=== PATIENT | male | born 1980 | race Caucasian/White ===

== ENCOUNTER 2024-06-13 21:51 | Emergency (ER) | payer MEDICAID, SELFPAY ==
[2024-06-13 21:52] VITALS: BP 146/96; PULSE 104; RESP 18; TEMP 36.9; O2SAT 99; BMI 29.0
--- NOTE | 2024-06-13 22:42 | EKG12_ITS ---
Test Reason : [facility] [place] Blood Pressure : / mmHG Vent. Rate : 097 BPM Atrial Rate : 097 BPM P-R Int : 148 ms QRS Dur : 096 ms QT Int : 354 ms P-R-T Axes : 068 009 057 degrees QTc Int : 449 ms Normal sinus rhythm Normal ECG Confirmed by CARSON NOE, LILLI ([id number]), school photograph editor VIN KAMARA ([id number]) on 06/16/2024 6:29:18 AM Referred By: Confirmed By:LILLI BYRD MD
[2024-06-13 22:52] VITALS: PULSE 82; RESP 16; O2SAT 100
[2024-06-13 23:06] LABS: Absolute Lymphocyte Count 1.76 X10^3/uL (0.83-4.51); Absolute Neutrophil Count 8.3 X10^3/uL (2.0-7.7); Basophil# 0.03 X10^3/uL; Basophil% 0.3 % (0-1); Hemoglobin 14.7 g/dL (13.0-16.5); Lymphocyte # 1.76 X10^3/ul (0.83-4.51); Lymphocyte % 16.7 % (19-41); Mean Corp Hgb Conc 33.4 g/dL (32-36); Mean Corpuscular Hgb 27.4 pg (27.0-32.0); Mean Corpuscular Volume 82.1 fL (80-94); Mean Platelet Vol. 10.6 fl (6.2-12.0); Monocyte# 0.37 X10^3/uL; Monocyte% 3.5 % (0-10); NRBC Flagged by Analyzer 0 % (0-5); Neutrophil # 8.32 X10^3/uL (2.7-7.7); Neutrophil % 79.1 % (47-70); Platelet Count 286 K/mm3 (150-450); RBC Distribution Width CV 13.3 % (11.6-14.6); RBC Distribution Width SD 39.8 fl (35.1-43.9); Red Blood Count 5.36 M/mm3 (4.6-6.2); White Blood Count 10.5 K/mm3 (4.4-11.0)
[2024-06-13 23:23] LABS: Anion Gap 8 (5-15); BUN 13 mg/dL (7-18); BUN/Creat Ratio 13.6 RATIO (10-20); Calcium,Total 9.8 mg/dL (8.5-10.1); Chloride 103 mmol/L (98-107); Creatinine, Serum 0.96 mg/dL (0.70-1.30); EST Glomerular Filtration Rate 90 mL/min (>60); Est Glom Filt Rate - Afr Amer 109 mL/min (>60); Estimated Creatinine Clearance 112.82 ml/min; Glucose 138 mg/dL (74-106); Potassium 3.9 mmol/L (3.5-5.1); Sodium Level 135 mmol/L (136-145)
[2024-06-13 23:24] LABS: Amphetamine Urine VISTA NEGATIVE (<1000 ng/mL); Barbiturate Urine VISTA NEGATIVE (< 200 ng/mL); Benzodiazepine Urine VISTA NEGATIVE (< 200 ng/mL); Cocaine Urine VISTA NEGATIVE (< 300 ng/mL); Ecstacy Urine VISTA NEGATIVE (< 500 ng/mL); Methadone Urine VISTA NEGATIVE (< 300 ng/mL); PCP Urine VISTA NEGATIVE (< 25 ng/mL); THC Urine VISTA NEGATIVE (< 50 ng/mL); Vista UDS pH Range 5
[2024-06-13 23:52] VITALS: BP 142/79; PULSE 86; RESP 18; O2SAT 96
[2024-06-14] VITALS: PULSE 80; RESP 14; O2SAT 97
[2024-06-14 00:01] LABS: Acetaminophen (Tylenol) Level < 2.0 ug/mL (10.0-30.0); Alcohol, Blood (Medical)-Serum < 3.0 mg/dL; Salicylate 3.1 mg/dL (2.8-20.0)
[2024-06-14] MEDS: LORazepam 1 MG Tablet PO (00:47)
--- NOTE | 2024-06-14 02:51 | EX.ED.DYSGE1 ---
HPI History of Present Illness Chief Complaint: Suicidal Informant: patient and friend Narrative Narrative: Patient is a 44-year-old male who reports a past medical history of depression and paranoia. He states he feels like people are just out to get him. He also states that he always hears voices. He denies any visual hallucinations. He states that he also has a history of injecting heroin and methamphetamine. He reports that his paranoia is leading to thoughts of suicide and he is afraid that if he is discharged that he would attempt to hurt himself. He states his plan is to overdose. He does admit to a previous attempt years ago. He states that he also drank multiple years ago but denies any recent alcohol use and also reports there is been no illicit drug use. He reportedly has been at a sober living house and has been acting abnormally because of his paranoia and today voiced his concerns that he would harm himself to a staff member and because of this was brought in for evaluation [facility] Medical History Paranoia Anxiety Depression Home Medications ?Medication ?Instructions ?Recorded ?Last Taken ?Type NK 06/13/24 Unknown History Allergy/AdvReac Type Severity Reaction Status Date / Time Penicillins (PCN) Allergy Severe Hives Verified 06/13/24 21:58 Social History Smoking Status: Current every day smoker tobacco type: smokeless tobacco ROS ROS ED Constitutional Constitutional ED: Denies chills or fever(s) Eyes Eyes: Denies blurry vision or change in vision ENT ENT ED: Denies sore throat Cardiovascular Cardiovascular: Denies chest pain Respiratory/Chest Respiratory/Chest: Denies cough or dyspnea Gastrointestinal Gastrointestinal: Denies abdominal pain, diarrhea, nausea or vomiting Genitourinary Genitourinary ED: Denies dysuria Musculoskeletal Musculoskeletal: Denies myalgias Integumentary Denies rash Neurologic Neurologic: Denies headache(s) Psychiatric Psychiatric: Reports depression, suicidal ideation, suicidal thoughts and other Details: Positive auditory hallucinations Hematologic/Lymphatic Hematologic/Lymphatic: Denies easy bleeding or easy bruising EXAM Physical Exam Const Vital Signs: 06/13/24 21:52 06/13/24 22:52 06/13/24 23:52 Temperature 98.4 F Temperature Source Oral Pulse Rate 104 H 82 86 Respiratory Rate 18 16 18 Blood Pressure 146/96 H 142/79 H Blood Pressure Mean 112 100 Pulse Ox 99 100 96 Oxygen Delivery Method Room Air Room Air Room Air 06/14/24 00:00 Temperature Temperature Source Pulse Rate 80 Respiratory Rate 14 Blood Pressure Blood Pressure Mean Pulse Ox 97 Oxygen Delivery Method Room Air Positive well nourished and well developed General Appearance ED: well developed HEENT HEENT Narrative: No tongue or lip swelling no oral lesions no airway edema or compromise No signs of infection noted in the posterior pharynx Eyes PERRL and EOMs intact bilaterally General Eye ED: Negative for scleral icterus Neck supple Neck Narrative: No nuchal rigidity or meningeal signs Chest Wall palpation of chest normal Resp normal respiratory effort and clear to auscultation bilaterally Resp Narrative: No nasal flaring retractions tachypnea or accessory muscle use Cardio regular rate and regular rhythm Rate: other Other Details: Radial and carotid pulses are equal and symmetric No murmurs rubs or gallops noted GI normal to inspection, nondistended, normoactive bowel sounds, non-tender, non-distended and no masses GI Narrative: No voluntary guarding or rigidity or pulsatile mass Auscultation: normoactive bowel sounds Palpation: soft Extremity Extremity Narrative: Patient has scarring to bilateral arms consistent with history of IV drug abuse but no secondary changes to suggest acute infection such as cellulitis or abscess No splinter hemorrhages noted Neuro oriented x3, CN's II-XII intact bilaterally and no sensory deficits noted Sensorium / Orientation: alert Motor Exam: strength 5/5 throughout Psych Psych Narrative: Patient has a flat affect. He admits to auditory hallucinations and reports suicidal ideation with plan to overdose. Skin Skin Narrative: Scarring to the bilateral upper extremities consistent with IV drug use as documented above but no secondary findings to suggest infection MDM MDM MDM Narrative Medical decision making narrative: Patient arrived to the ER hypertensive but otherwise with stable vitals. He reported longstanding paranoia which is most likely been exacerbated by his years of drug abuse. At this time he admits he is afraid he will harm himself if discharged and he has a plan to overdose. He does have a history of IV drug use and access to obtaining illicit drugs and therefore this is a very real possibility that he could perform this type of action. Secondary to this a medical screening exam will be performed and he will be evaluated by crisis center. He does not have any murmurs on exam and there are no splinter hemorrhages present going against any possibility of myocarditis from his history of IV drug use. Also, he does not have signs of secondary infection from the of his skin/soft tissue from IV drug use and therefore there is no need for antibiotic. Medical workup reveals no clinically significant findings and patient's talk screen and alcohol value are negative correlating his response of he has not done alcohol or drugs recently. The patient was evaluated by crisis center and they agree that with his medical history and report of suicidal ideation with plan that he would best be served with inpatient therapy versus outpatient. Secondary to this they attempted placement at [facility] and he was accepted to their facility. The patient has remained calm and cooperative for his ER stay and he is medically cleared from an emergency room standpoint for transfer/placement in psychiatric hospital History & Record Review Discussion w/independent historian: Patient and Friend Lab Data Attestation: I reviewed the patient's lab results. Labs: Laboratory Results - last 24 hr 06/13/24 22:57 WBC 10.5 RBC 5.36 Hgb 14.7 Hct 44.0 MCV 82.1 MCH 27.4 MCHC 33.4 RDW Std Deviation 39.8 RDW Coeff of Lanre 13.3 Plt Count 286 MPV 10.6 Immature Gran % (Auto) 0.400 Neut % (Auto) 79.1 H Lymph % (Auto) 16.7 L [place] % (Auto) 3.5 Eos % (Auto) 0.0 Baso % (Auto) 0.3 Absolute Neuts (auto) 8.3 H Absolute Lymphs (auto) 1.76 Nucleated RBC % 0 Sodium 135 L Potassium 3.9 Chloride 103 Carbon Dioxide 23.0 Anion Gap 8 BUN 13 Creatinine 0.96 Estim Creat Clear Calc 112.82 Est GFR (MDRD) Af Amer 109 Est GFR (MDRD) Non-Af 90 BUN/Creatinine Ratio 13.6 Glucose 138 H Calcium 9.8 Salicylates 3.1 Urine Opiates Screen NEGATIVE Urine Methadone Screen NEGATIVE Acetaminophen < 2.0 L Ur Barbiturates Screen NEGATIVE Ur Phencyclidine Scrn NEGATIVE Ur Amphetamines Screen NEGATIVE MDMA (Ecstasy) Screen NEGATIVE U Benzodiazepines Scrn NEGATIVE Urine Cocaine Screen NEGATIVE U Cannabinoids Screen NEGATIVE Ur Drug Screen Comment Ethyl Alcohol < 3.0 Discharge Plan Triage Chief Complaint: Suicidal ED Provider: Jama Collins Dx/Rx/DC Orders Clinical Impression: Depression with suicidal ideation, Paranoia, Hx of drug abuse Prescriptions: No Action NK Primary Care Provider: Care Physician,No Primary Referrals: Care Physician,No Primary [Primary Care Provider] - Print Language: Mongolian Disposition Disposition: Psychiatric Hospital or Unit Discharge Location: [facility]
[2024-06-14] MEDS: DiphenhydrAMINE 50 MG/ML Syringe IM (03:09)
[2024-06-14] MEDS: Haloperidol Lactate 5 MG/ML Vial IM (03:09)
--- NOTE | 2024-06-14 04:22 | ED.RN ---
Report called to Alexey BENAVIDEZ at [facility], questions/concerns answered
[2024-06-14 06:48] VITALS: BP 140/71; PULSE 81; RESP 16; TEMP 36.7; O2SAT 97
== END 2024-06-14 08:05 ==
PROVIDERS: Emergency Provider Emergency Medicine; Visit Provider Emergency Medicine
DX: R45.851 Suicidal ideations (principal); F22 Delusional disorders; F19.10 Other psychoactive substance abuse, uncomplicated; F32.A Depression, unspecified; Z59.01 Sheltered homelessness; Z91.51 Personal history of suicidal behavior; F17.290 Nicotine dependence, other tobacco product, uncomplicated
CPT/HCPCS: 80143; 80179; 80048; 80307; 80329; 82077; 85025; 93005; 96372; 99285; G0480